=== PATIENT | male | born 1995 | race Caucasian/White ===

== ENCOUNTER 2018-09-18 22:20 | Emergency (ER) | payer SELFPAY ==
[~2018-09-18 22:20] MED LIST: Acetaminophen/HYDROcodone 325-5 MG Tab ONE
[2018-09-18] MEDS: Acetaminophen/HYDROcodone 325-10 MG Tab PO ONE (23:06)
--- NOTE | 2018-09-18 23:37 | EDM.PDOC ---
ED HPI GENERAL MEDICAL PROBLEM - General Chief Complaint: General Stated Complaint: POSSIBLE Fx Clavicle Time Seen by Provider: 09/18/18 22:45 Source of Information: Reports: Patient History Limitations: Reports: No Limitations - History of Present Illness INITIAL COMMENTS - FREE TEXT/NARRATIVE: This is a 23yo M who fell when loading wood and hit his left shoulder. He denies any other physical injury. He is in 6/10 pain constantly. It is worse on movement and walking. He denies any other health concern. He does not take any medications and has no past medical history. Onset: Sudden Location: Reports: Upper Extremity, Left Severity: Severe Improves with: Reports: None Worsens with: Reports: Movement Associated Symptoms: Reports: No Other Symptoms Left Clavicle Pain Score (Numeric/FACES): 5 - Related Data Allergies Allergy/AdvReac Type Severity Reaction Status Date / Time No Known Allergies Allergy Verified 09/18/18 22:23 Home Meds: Home Meds NK [No Known Home Meds] 09/18/18 [History] ED ROS GENERAL - Review of Systems Review Of Systems: ROS reveals no pertinent complaints other than HPI. ED EXAM, GENERAL - Physical Exam Exam: See Below Exam Limited By: No Limitations General Appearance: Alert, WD/WN, Moderate Distress Eye Exam: Bilateral Eye: EOMI, PERRL Ears: Normal External Exam Nose: Normal Inspection Throat/Mouth: Normal Inspection Head: Atraumatic, Normocephalic Neck: Normal Inspection, Supple, Non-Tender Respiratory/Chest: No Respiratory Distress, Lungs Clear, Normal Breath Sounds Cardiovascular: Normal Peripheral Pulses, Regular Rate, Rhythm Peripheral Pulses: 2+: Dorsalis Pedis (L), Dorsalis Pedis (R) GI/Abdominal: Normal Bowel Sounds Extremities: Normal Inspection Neurological: Alert, Oriented, CN II-XII Intact Psychiatric: Normal Affect, Normal Mood Skin Exam: Warm, Dry, Intact Course - Vital Signs Last Recorded V/S: Last Vital Signs Temp 37.2 C 09/18/18 22:35 Pulse 69 09/18/18 22:35 Resp 20 09/18/18 22:35 BP 111/44 L 09/18/18 22:35 Pulse Ox 99 09/18/18 22:35 - Orders/Labs/Meds Orders: Active Orders 24 hr Category Date Time Status Clavicle Lt [CR] Stat Exams 09/18/18 22:55 Taken Meds: Medications Discontinued Medications Generic Name Dose Route Start Last Admin Trade Name Lydia PRN Reason Stop Dose Admin Hydrocodone Bitart/Acetaminophen 1 tab 09/18/18 23:04 09/18/18 23:06 [place] 325-10 Mg PO 09/18/18 23:05 1 tab ONETIME ONE Administration Departure - Departure Time of Disposition: 23:50 Disposition: Home, Self-Care 01 Condition: Undetermined Clinical Impression: Fracture, clavicle closed, shaft Qualifiers: Encounter type: initial encounter Fracture alignment: displaced Laterality: left Qualified Code(s): S42.022A - Displaced fracture of shaft of left clavicle , initial encounter for closed fracture - Discharge Information Instructions: Acetaminophen; Hydrocodone tablets or capsules, Clavicle Fracture , [id number] Forms: ED Department Discharge Additional Instructions: Contact [facility] right away Thursday for further treatment with orthopedics. May take provided Vicodin as directed: 1 tablet by mouth every 4 hours as needed for pain. May also need to take additional Tylenol for breakthrough pain as well. Be sure to take a stool softener while taking Vicodin due to potential for constipation. Keep brace in place as instructed to help with pain. Decrease activity level at this time. Be sure to monitor yourself for any changes in breathing/respirations-should you notice any increased shortness of breath or difficulty breathing, as well as any numbness, tingling, weakness present to left arm below level of injury; should any of these symptoms occur return to be seen right away. Also apply ice pack to affected area intermittently every hour to help with pain. Call with any questions. - Problem List & Annotations (1) Fracture, clavicle closed, shaft SNOMED Code(s): 75284815 Code(s): S42.023A - DISP FX OF SHAFT OF UNSP CLAVICLE, INIT FOR CLOS FX Status: Acute Priority: High Qualifiers: Encounter type: initial encounter Fracture alignment: displaced Laterality: left Qualified Code(s): S42.022A - Displaced fracture of shaft of left clavicle, initial encounter for closed fracture - Problem List Review Problem List Initiated/Reviewed/Updated: Yes - My Orders Last 24 Hours: My Active Orders 09/18/18 22:55 Clavicle Lt [CR] Stat - Assessment/Plan Last 24 Hours: My Active Orders 09/18/18 22:55 Clavicle Lt [CR] Stat Plan: Consulted Dr. [facility] and sent PACS and images. Plan for patient to f/u in [facility] clinic for further management and likely scheduling for surgery. Patient understands the risks and benefits and damage done. He will contact [facility] for scheduling and f/u immediately on Thursday. Counseled on supportive care and conservative therapy at this time. Pain meds given and to be take as scheduled - counseled on side effects and f/u. Clavicle figure eight brace and left arm sling prepared for patient. Patient to f/u if any issue with breathing or new onset symptoms. Patient to call hospital if any concerns 09/03. Counseled on f/u as directed and patient agrees with plan of care.
--- NOTE | 2018-09-19 11:33 | CR ---
LEFT CLAVICLE, No priors. There is a comminuted displaced fracture through the mid clavicle. There is 2.7 cm inferior displacement of the distal fragment with respect to the proximal. There is cortical irregularity at the left second rib laterally suggesting a left second rib fracture. The left lung is clear. No pneumothorax. No other acute abnormalities. [id number] [facility]
== END 2018-09-19 00:10 | disposition home or self-care (01) ==
LOC: LB.ED 22:20
DX: S42.022A Displaced fracture of shaft of left clavicle, initial encounter for closed fracture (principal); W18.39XA Other fall on same level, initial encounter
CPT/HCPCS: 73000; 99283; A9270